=== PATIENT | male | born 1950 ===

== ENCOUNTER 2017-05-12 07:41 | Day surgery (SDC) | payer OTHER ==
[2017-05-11 10:07] VITALS: BMI 26.6
[2017-05-12 08:13] VITALS: TEMP 98
--- NOTE | 2017-05-12 09:12 | HP ---
History & Physical Update - History History: No Change - Physical Physical: No Change - Assessment Assessment: No Change - Plan Plan: No Change
[2017-05-12] MEDS ORDERED: LIDOCAINE HCL 1%, 10 MG/ML (20ML VIAL) ONE (09:37)
[2017-05-12] MEDS ORDERED: LIDOCAINE 1%/EPI 1:100000 (20 ML MULTI DOSE VIAL) ONE (09:37)
[2017-05-12] MEDS ORDERED: MIDAZOLAM HCL 2 MG/2 ML SINGLE DOSE VIAL ONE ×2 (09:48)
[2017-05-12] MEDS ORDERED: BUPIVACAINE HCL/PF 0.5% (5MG/ML) 10 ML VIAL ONE (10:01)
[2017-05-12] MEDS ORDERED: ceFAZolin SODIUM 1 GM VIAL IVPB ONE (10:17)
[2017-05-12] MEDS ORDERED: BUPIVACAINE HCL/PF 0.5% (5MG/ML) 10 ML VIAL IJ ONE (10:24)
[2017-05-12] MEDS ORDERED: LIDOCAINE 1%/EPI 1:100000 (20 ML MULTI DOSE VIAL) IJ ONE (10:24)
--- NOTE | 2017-05-12 10:53 | OP ---
Operative Note - Note: Operative Date: 05/12/17 Pre-Operative Diagnosis: 5 cm. mass on left upper back. Operation: Excision of 5 cm. mass on left upper back, extending deep to deep fascia, with layered closure. Findings: Large,firm ,well circumscribed mass on his upper back to the left of the midline , extending deep to the deep fascia. Wound closed in layers, closing deep fascia, and skin and subcutaneous tissue. Surgeon: Carine Xiong Anesthesiologist/DIGITAL STRATEGY DIRECTOR: Marquise Barry I Anesthesia: MAC Specimens Removed: Mass on back. Estimated Blood Loss (mls): 5 Operative Report Dictated: Yes
--- NOTE | 2017-05-12 12:31 | OP ---
DATE OF OPERATION: 05/12/2017 PREOPERATIVE DIAGNOSIS: Large 5-cm mass on his left upper back. POSTOPERATIVE DIAGNOSIS: 5-cm mass in the upper back deep to the deep fascia. OPERATIVE PROCEDURE: Excision of 5-cm mass of the left upper back extending to the deep fascia with layered closure. SURGEON: Horacio Xiong MD ANESTHESIA: Local with monitored intravenous sedation. ANESTHESIOLOGIST: Jasiel eMrino OPERATIVE DESCRIPTION: This 67-year-old man had a painful mass in his left upper back to the left of the midline and medial to the scapula. The patient is brought in for excision of the lesion. The site was identified, marked, consent was obtained. Risks, benefits, complications had been discussed with the patient. The patient was placed in the right lateral position with right side down. The patient was given intravenous sedation. The back was painted and draped. A time-out was called. Then 1% lidocaine was injected circumferentially around the lesion. The site had been marked earlier. A 4-cm length transverse elliptical incision was made around the lesion. The skin was undermined on both sides. There was a large, firm mass extending deep to subcutaneous fat and the deep fascia. The skin was undermined on both sides of the incision and extended through the subcutaneous fat and through the deep fascia. The lesion was completely incised from its surrounding structures and from the deep fascia as well as subcutaneous fat on either side. The specimen was hard, well rounded and was sent to Pathology. Hemostasis was achieved using electrocautery. The deep fascia was then mobilized by undermined with electrocautery on either side. The deep fascia was then approximated with buried, interrupted 3-0 Vicryl sutures. The skin was then approximated with 2-0 silk sutures in a vertical mattress fashion. Then 0.5% Marcaine was then injected to the wound after the procedure. The patient was given a gram of Ancef prior to the procedure. Pressure dressing was applied placing a 4 x 4 folded over the wound and covering with Tegaderm. Estimated blood loss was 5 mL. Sponge count and instrument count was correct. The patient was sent to the ambulatory suite in satisfactory and stable condition. Rocio [id number] MTD
[2017-05-12 12:45] VITALS: BP 122/48; PULSE 73
--- NOTE | 2017-05-15 15:18 | PATH ---
Surgical Pathology Report Patient Name: KALYANI HURD [facility]. Rec. #: [id number] /Age/Gender: 1950 (Age: 67) / M Account: [id number] Location: [facility] SURGICAL Taken: 05/12/2017 Received: 05/12/2017 Reported: 05/15/2017 Physicians: Horacio Xiong M.D. Specimen(s) Received A: MASS FROM BACK B: MASS FROM BACK Clinical History Mass on back Final Diagnosis A. SKIN, BACK, EXCISION: EPIDERMAL INCLUSION CYST (KERATINOUS CYST). B. SOFT TISSUE, BACK, EXCISION: BENIGN FIBROUS TISSUE AND ADIPOSE TISSUE, WITH SCANT BENIGN SQUAMOUS EPITHELIUM. Electronically Signed Galen Louis M.D. Gross Description A. Received in formalin labeled "mass from back," is a 3.3 x 2.5 x 1.5 cm richter-yellow, irregular, unoriented portion of soft tissue which is surfaced by a 2.8 x 0.5 cm richter, elliptical, unremarkable portion of skin. Sectioning reveals an intact cyst containing richter sebaceous material. A appeals representative section is submitted in one cassette. B. Received in formalin labeled "mass from back," is a 1.1 x 0.6 x 0.5 cm richter-yellow, irregular, unoriented portion of soft tissue. The specimen is bisected and entirely submitted in one cassette. 05/12/201705/12/2017
== END 2017-05-12 12:47 | disposition home or self-care (01) ==
LOC: JASU-SURG 07:41
PROVIDERS: ATTEND Specialist
PROC: 0JB70ZZ Excision of Back Subcutaneous Tissue and Fascia, Open Approach (ICD-10-PCS; principal; 2017-05-12 09:30)
DX: D21.6 Benign neoplasm of connective and other soft tissue of trunk, unspecified (principal)
CPT/HCPCS: 88304-TC

== ENCOUNTER 2021-11-14 18:12 | Emergency (ER) | payer OTHER ==
[2021-11-14 18:23] VITALS: BMI 28.1
[2021-11-14] MEDS ORDERED: LOPERAMIDE HCL 2 MG CAPSULE PO ONE (18:41)
[2021-11-14] MEDS ORDERED: SODIUM CHLORIDE 500 ML IV STA (18:41)
[2021-11-14 18:53] LABS: HEMATOCRIT 34.3 % (35.4-49); HEMOGLOBIN 11.8 G/dL (11.7-16.9); MCH 28.6 pg (25.7-33.7); MCHC 34.3 g/dl (32.0-35.9); MEAN CELL VOLUME 83.3 fl (80-96); MEAN PLT VOLUME 8.7 fl (7.5-11.1); PLATELET COUNT 402.6 10^3/uL (134-434); RBC 4.12 10^6/uL (4.00-5.60); RDW 15.4 % (11.9-15.9)
[2021-11-14] MEDS ORDERED: LOPERAMIDE HCL 2 MG CAPSULE ONE (18:53)
[2021-11-14 19:12] LABS: BILIRUBIN,TOTAL 0.8 mg/dl (0.2-1); CALCIUM 9.6 mg/dl (8.5-10); CREATININE 1.5 mg/dl (0.55-1.3); TOT PROT 6.7 g/dl (6.4-8.2)
[2021-11-14 19:20] LABS: ANISOCYTOSIS FEW; PLATELET ESTIMATE SLT INCREASE
[2021-11-14] MEDS ORDERED: SODIUM CHLORIDE 0.9% 500 ML INFUS.BAG IV ONE (19:32)
[2021-11-14] MEDS ORDERED: ACETAMINOPHEN 1000 MG/100 ML BAG IVPB ONE (19:39)
[2021-11-14] MEDS ORDERED: ACETAMINOPHEN INJECTION 100 ML IVPB ONE (19:42)
[2021-11-14 20:08] LABS: EPITHELIAL CELLS NONE SEEN /hpf
[2021-11-14 21:15] VITALS: TEMP 99
[2021-11-14 22:06] LABS: CALCIUM 8.5 mg/dl (8.5-10); CREATININE 1.4 mg/dl (0.55-1.3)
[2021-11-14 22:32] VITALS: BP 103/56; PULSE 97
== END 2021-11-14 22:42 | disposition home or self-care (01) ==
LOC: FER 18:12
PROC: 3E0333Z Introduction of Anti-inflammatory into Peripheral Vein, Percutaneous Approach (ICD-10-PCS; principal; 2021-11-14)
PROC: 3E0337Z Introduction of Electrolytic and Water Balance Substance into Peripheral Vein, Percutaneous Approach (ICD-10-PCS; 2021-11-14)
DX: A09 Infectious gastroenteritis and colitis, unspecified (principal)
CPT/HCPCS: 0241U-QW; 36415; 71046-TC-FY; 80048; 80053; 81003; 81015; 82962; 84484; 85025; 87086; 93005; 99285-25